=== PATIENT | female | born 1995 | race Caucasian/White ===

== ENCOUNTER → 2016-12-30 | Outpatient (CLI) | payer BC ==
--- NOTE | 2016-12-30 11:15 | Diagnostic Imaging Report ---
First Trimester OB ultrasound. INDICATION: Dating. FINDINGS: There is a normal-appearing single intrauterine . An embryo is seen with cardiac activity at 153 beats per minute. The crown-rump length is at 10 weeks and 5 days. ERNESTINE is 07/23/17. IMPRESSION: Live single intrauterine . Dictated by: Dictated on workstation # [id number]
== END ==
LOC: RAD 10:21
PROVIDERS: ATTEND Family Medicine
DX: Z36 Encounter for antenatal screening of mother (principal); Z3A.10 10 weeks gestation of pregnancy
CPT/HCPCS: 76801

== ENCOUNTER → 2017-03-06 | Outpatient (CLI) | payer BC, MEDICAID ==
--- NOTE | 2017-03-06 11:09 | Diagnostic Imaging Report ---
INDICATION: survey. TECHNIQUE: Multiple real-time grayscale images were obtained over the gravid uterus. COMPARISON: None. FINDINGS: There is a single living intrauterine in a breech presentation. There is a normal volume amniotic fluid. Placenta is anterior. There is no previa. The anatomical survey is unremarkable. Heart rate is 142 beats per minute and regular. There is a three-vessel cord. Biometrical measurements are as follows: Biparietal 4.7 cm, age 20 weeks 3 days. Head circumference 17.4 cm, age 20 weeks 0 days. Abdominal circumference 15.9 cm, age 21 weeks 1 days. Femur length 3.4 cm, age 20 weeks 4 days. Sonographic estimate age: 20 weeks 4 days. Sonographic estimated date of delivery: 07/20/17. Estimated Weight: 370 gm (+/- 54 gm). LMP percentile: 76%. heart rate: 142 beats per minute. number: 1 of 1. IMPRESSION: Single living intrauterine with sonographically estimated gestational age of 20 weeks 4 days and estimated date of confinement of 07/20/2017. Dictated by: Dictated on workstation # [id number]
== END ==
LOC: RAD 10:09
PROVIDERS: ATTEND Family Medicine
DX: Z34.02 Encounter for supervision of normal first pregnancy, second trimester (principal); Z3A.20 20 weeks gestation of pregnancy
CPT/HCPCS: 76805

== ENCOUNTER 2017-05-17 11:55 | Emergency (ER) | payer BC, MEDICAID ==
[~2017-05-17] VITALS: Ht 162.6 cm; Wt 73.0 kg
--- OUTSIDE RECORDS SUMMARY | 2017-05-17 12:00 | XMS REPORT | Continuity of Care Document ---
Author Author [facility] Organization [facility] Address Unknown Phone Unavailable Allergies Active Description Code Type Severity Reaction Onset Reported/Identified Relationship to Patient Clinical Status Yes No Known Drug Allergies [id number] Drug Allergy Unknown N/A 04/12/2015 Medications There is no data. Problems Date Dx Coded Attending Type Code Diagnosis Diagnosed By 04/12/2015 JOEL NIEVES, POLLO Belle Ot R10.11 RIGHT UPPER QUADRANT PAIN 12/31/2016 JEFFRY FRANCIS MD Ot Z36 ENCOUNTER FOR SCREENING OF MOT 12/31/2016 JEFFRY FRANCIS MD Ot Z3A.10 10 WEEKS GESTATION OF 01/07/2017 JEFFRY FRANCIS MD Ot Z36 ENCOUNTER FOR SCREENING OF MOT 01/07/2017 JEFFRY FRANCIS MD Ot Z3A.10 10 WEEKS GESTATION OF 03/04/2017 JEFFRY FRANCIS MD Ot Z36 ENCOUNTER FOR SCREENING OF MOT 03/04/2017 JEFFRY FRANCIS MD Ot Z3A.10 10 WEEKS GESTATION OF 03/04/2017 JEFFRY FRANCIS MD Ot Z36 ENCOUNTER FOR SCREENING OF MOT 03/04/2017 JEFFRY FRANCIS MD Ot Z3A.10 10 WEEKS GESTATION OF 03/13/2017 JEFFRY FRANCIS MD Ot Z34.02 ENCNTR FOR SUPRVSN OF NORMAL FIRST PREG, 03/13/2017 JEFFRY FRANCIS MD Ot Z3A.20 20 WEEKS GESTATION OF 03/16/2017 JEFFRY FRANCIS MD Ot Z36 ENCOUNTER FOR SCREENING OF MOT 03/16/2017 JEFFRY FRANCIS MD Ot Z3A.10 10 WEEKS GESTATION OF 03/16/2017 JEFFRY FRANCIS MD Ot Z34.02 ENCNTR FOR SUPRVSN OF NORMAL FIRST PREG, 03/16/2017 JEFFRY FRANCIS MD Ot Z3A.20 20 WEEKS GESTATION OF 04/14/2017 JEFFRY FRANCIS MD Ot Z34.02 ENCNTR FOR SUPRVSN OF NORMAL FIRST PREG, 04/14/2017 JEFFRY FRANCIS MD, Ot Z3A.20 20 WEEKS GESTATION OF Procedures There is no data. Results There is no data. Encounters ACCT No. Visit Date/Time Discharge Status Pt. Type Provider Facility Loc./Unit Complaint [id number] 03/06/2017 10:09:00 03/06/2017 23:59:59 CLS Outpatient JEFFRY FRANCIS MD [facility] RAD Z34.02 CARE [id number] 12/24/2016 07:56:00 12/24/2016 23:59:59 CLS Outpatient JEFFRY FRANCIS MD [facility] RAD Z34.00 [id number] 04/12/2015 20:36:00 04/12/2015 22:25:00 DIS Emergency POLLO MALDONADO MD [facility] ER R SIDE PAIN
--- OUTSIDE RECORDS SUMMARY | 2017-05-17 12:00 | XMS REPORT ---
Author Author NORA MILAN Organization [facility] Address [address] [place] [address] Care Team Providers Care Dental Coordinator Name Role Phone NORA MILAN Unavailable PROBLEMS Type Condition ICD9-CM Code [id number] Code Onset Dates Condition Status SNOMED Code Problem Genital warts A63.0 Active [id number] ALLERGIES Unknown Allergies SOCIAL HISTORY No smoking Hx information available PLAN OF CARE Activity Details Follow Up prn Reason: VITAL SIGNS Weight 172.2 lbs 2016-04-03 Temperature 97.5 degrees Fahrenheit 2016-04-03 Heart Rate 80 bpm 2016-04-03 Respiratory Rate 16 2016-04-03 Blood pressure systolic 110 mmHg 2016-04-03 Blood pressure diastolic 76 mmHg 2016-04-03 MEDICATIONS Medication Instructions Dosage Frequency Start Date End Date Duration Status Aldara 5 % Externally Three times a Week 1 application to affected area at bedtime Mar, Nov, 112 days Active Aldara 5 % Externally Three times a Week 1 application to affected area at bedtime Mar, Jul, 112 days Active RESULTS Name Result Date Reference Range PAP TEST, HPV IF ASCUS 2016-04-03 DIAGNOSIS: Specimen adequacy: Clinician provided ICD10: Performed by: . . Note: . CULTURE, GENITAL 2016-04-03 Genital Culture, Routine Final report Result 1 TRICHOMONAS (IN HOUSE) 2016-04-03 TRICHOMONAS Negative Control + Lot # [id number] Exp date 10/2016 PDF Report 2016-04-03 PDF Report1 LCLS BACTERIAL VAGINOSIS (IN HOUSE) 2016-04-03 RESULTS Negative Control + Lot # [id number] Exp date 12/2016 GC/CHLAM URINE (STATE) 2016-04-03 CHLAMYDIA GC PROCEDURES Procedure Date Ordered Related Diagnosis Body Site No Charge Apr 03, 2016 RODRIGUES VAG, DNA, DIR PROBE Apr 03, 2016 Office Visit, Est Pt., Level 3 Apr 03, 2016 TRICHOMONAS ASSAY W/OPTIC Apr 03, 2016 CULTURE, BACTERIA, OTHER Apr 03, 2016 SPECIMEN HANDLING Apr 03, 2016 IMMUNIZATIONS No Known Immunizations
[2017-05-17] MEDS ORDERED: NS IV 1000 ML 1,000 ML IV ONE ×2 (13:07→13:58)
--- NOTE | 2017-05-17 13:14 | ED GU-Female ---
General Chief Complaint: Cough/Cold/Flu Symptoms Stated Complaint: 30 WKS PREG/VOMITING/FEVER Nursing Triage Note: Pt presents to ED with c/o vomiting once today and fever/vomiting x 2 yesterday. Afebrile. 30 weeks . Nursing Sepsis Screen: Possible Sepsis Risk Source: patient Exam Limitations: no limitations History of Present Illness Date Seen by Provider: May 17, 2017 Time Seen by Provider: 13:14 Initial Comments 22-year-old female patient presents to the emergency Department with reports of vomiting once today and twice yesterday. Patient does complain of a fever yesterday, but denies any fever today. Patient states she is 30 weeks . Denies urinary symptoms, diarrhea, abdominal pain, vaginal bleeding, or vaginal discharge. Timing/Duration: yesterday, intermittent Severity/Quality: mild Prior Genitourinary Problems: none Modifying Factors: Worsens With Eating Allergies and Home Medications Allergies Coded Allergies: No Known Drug Allergies (Unverified , 04/12/15) Home Medications Cefdinir 300 Mg Capsule, 300 MG PO BID, #14 Ref 0 Prescribed by: ROCCO RESENDEZ on 05/17/17 1431 Ondansetron 4 Mg Tab.rapdis, 4 MG PO Q6H PRN for NAUSEA/VOMITING-1ST LINE, #10 Ref 0 Prescribed by: ROCCO RESENDEZ on 05/17/17 1431 Constitutional: see HPI, chills, No fever (denies fever today) EENTM: no symptoms reported Respiratory: No cough, No dyspnea on exertion, No phlegm, No short of breath Cardiovascular: No chest pain, No edema, No palpitations, No syncope Gastrointestinal: see HPI, No abdominal pain, No constipation, No diarrhea, loss of appetite, nausea, vomiting Genitourinary: denies burning, denies discharge, denies dysuria, denies frequency, denies flank pain, denies hematuria, denies pain : Yes Musculoskeletal: no symptoms reported Skin: no symptoms reported Psychiatric/Neurological: No Symptoms Reported All Other Systemes Reviewed Negative Unless Noted: Yes (Negative excepted noted.) Past Otcdvud-Ldlrwc-Eqxuxa Hx Patient Social History Alcohol Use: Denies Use Recreational Drug Use: No Smoking Status: Never a Smoker 2nd Hand Smoke Exposure: No Recent Foreign Travel: No Contact w/Someone Who Travel: No Recent Infectious Disease Expo: No Recent Hopitalizations: No Physical Abuse: No Sexual Abuse: No Mistreated: No Fear: No Immunizations Up To Date Tetanus Booster (TDap): Unknown Date of Influenza Vaccine: Feb 11, 2017 Seasonal Allergies Seasonal Allergies: No Surgeries History of Surgeries: Yes (DENTAL) Surgeries: Adenoidectomy, Gallbladder, Tonsillectomy Respiratory History of Respiratory Disorde: No Cardiovascular History of Cardiac Disorders: No Neurological History of Neurological Disord: No Reproductive System : Yes Hx : 1 Hx Para: 0 Hx Total # of Abortions (Spona: 0 Hx Reproductive Disorders: No Female Reproductive Disorders: Denies Genitourinary History of Genitourinary Disor: No Gastrointestinal History of Gastrointestinal Di: No Musculoskeletal History of Musculoskeletal Dis: No Endocrine History of Endocrine Disorders: No HEENT History of HEENT Disorders: No Cancer History of Cancer: No Psychosocial History of Psychiatric Problem: No Suicide Risk Score: 1 Integumentary History of Skin or Integumenta: No Blood Transfusions History of Blood Disorders: No Reviewed Nursing Assessment Reviewed/Agree w Nursing PMH: Yes Family Medical History Significant Family History: No Pertinent Family Hx Physical Exam Vital Signs Vital Sign - Last 12Hours 05/17/17 12:04 Temp 97.3 Pulse 95 Resp 18 B/P (MAP) 108/83 (91) Pulse Ox 99 O2 Delivery Room Air Capillary Refill : Less Than 3 Seconds General Appearance: WD/WN, no apparent distress HEENT: PERRL/EOMI, pharynx normal Neck: supple, normal inspection Cardiovascular: normal peripheral pulses, regular rate, rhythm, no edema, no murmur Respiratory: lungs clear, normal breath sounds, no respiratory distress, no accessory muscle use Gastrointestinal: normal bowel sounds, non tender, soft, No distended, other (( +) uteromegaly) Back: normal inspection, no CVA tenderness Extremities: no pedal edema, no calf tenderness, normal capillary refill Neurologic/Psychiatric: alert, normal mood/affect, oriented x 3 Skin: normal color, warm/dry Progress/Results/Core Measures Suspected Sepsis Recent Fever Within 48 Hours: Yes Infection Criteria Present: Suspected New Infection New/Unexplained Altered Menta: No Sepsis Screen: Possible Sepsis Risk Sepsis Diagnosis: SIRS Temperature:97.3 Pulse: 95 Respiratory Rate: 18 Laboratory Tests 05/17/17 13:20: White Blood Count 7.8 Blood Pressure 108 /83 Mean: 91 Laboratory Tests 05/17/17 13:20: Creatinine 0.61, Platelet Count 187, Total Bilirubin 0.6 Results/Orders Lab Results Laboratory Tests Test 05/17/17 13:20 Range/Units White Blood Count 7.8 4.3-11.0 10^3/uL Red Blood Count 4.19 L 4.35-5.85 10^6/uL Hemoglobin 13.0 11.5-16.0 G/DL Hematocrit 37 35-52 % Mean Corpuscular Volume 88 80-99 FL Mean Corpuscular Hemoglobin 31 25-34 PG Mean Corpuscular Hemoglobin Concent 35 32-36 G/DL Red Cell Distribution Width 13.3 10.0-14.5 % Platelet Count 187 130-400 10^3/uL Mean Platelet Volume 11.1 H 7.4-10.4 FL Neutrophils (%) (Auto) 82 H 42-75 % Lymphocytes (%) (Auto) 12 12-44 % Monocytes (%) (Auto) 6 0-12 % Eosinophils (%) (Auto) 0 0-10 % Basophils (%) (Auto) 0 0-10 % Neutrophils # (Auto) 6.4 1.8-7.8 X 10^3 Lymphocytes # (Auto) 1.0 1.0-4.0 X 10^3 Monocytes # (Auto) 0.5 0.0-1.0 X 10^3 Eosinophils # (Auto) 0.0 0.0-0.3 10^3/uL Basophils # (Auto) 0.0 0.0-0.1 10^3/uL Urine Color [place] H Urine Clarity SLIGHTLY CLOUDY Urine pH 6 5-9 Urine Specific [place] 1.015 L 1.016-1.022 Urine Protein 1+ H NEGATIVE Urine Glucose (UA) NEGATIVE NEGATIVE Urine Ketones 4+ H NEGATIVE Urine Nitrite NEGATIVE NEGATIVE Urine Bilirubin 1+ H NEGATIVE Urine Urobilinogen 1 NORMAL MG/DL Urine Leukocyte Esterase 3+ H NEGATIVE Urine RBC (Auto) NEGATIVE NEGATIVE Urine RBC NONE /HPF Urine WBC 5-10 H /HPF Urine Squamous Epithelial Cells >50 H /HPF Urine Crystals NONE /LPF Urine Bacteria MODERATE H /HPF Urine Casts NONE /LPF Urine Mucus NEGATIVE /LPF Urine Culture Indicated NO Sodium Level 136 135-145 MMOL/L Potassium Level 4.0 3.6-5.0 MMOL/L Chloride Level 104 98-107 MMOL/L Carbon Dioxide Level 19 L 21-32 MMOL/L Anion Gap 13 5-14 MMOL/L Blood Urea Nitrogen 9 7-18 MG/DL Creatinine 0.61 0.60-1.30 MG/DL Estimat Glomerular Filtration Rate > 60 BUN/Creatinine Ratio 15 Glucose Level 78 70-105 MG/DL Calcium Level 9.5 8.5-10.1 MG/DL Total Bilirubin 0.6 0.1-1.0 MG/DL Aspartate Amino Transf (AST/SGOT) 21 5-34 U/L Alanine Aminotransferase (ALT/SGPT) 13 0-55 U/L Alkaline Phosphatase 70 40-136 U/L Total Protein 7.6 6.4-8.2 GM/DL Albumin 3.7 3.2-4.5 GM/DL Lipase 33 8-78 U/L Micro Results Microbiology 05/17/17 Influenza Types A,B Antigen (ZAIN) - Final, Complete My Orders Orders - ROCCO RESENDEZ Cbc With Automated Diff (05/17/17 13:07) Comprehensive Metabolic Panel (05/17/17 13:07) Lipase (05/17/17 13:07) Ua Culture If Indicated (05/17/17 13:07) Influenza A And B Antigens (05/17/17 13:07) Saline Lock/Iv-Start (05/17/17 13:07) Heart Tones (05/17/17 13:07) Ns Iv 1000 Ml (Sodium Chloride 0.9%) (05/17/17 13:07) Ondansetron Injection (Zofran Injectio (05/17/17 13:15) Ns Iv 1000 Ml (Sodium Chloride 0.9%) (05/17/17 13:58) Ceftriaxone Injection (Rocephin Injectio (05/17/17 14:00) Ceftriaxone Injection (Rocephin Injectio (05/17/17 13:57) Ns (Ivpb) (Sodium Chloride 0.9% Ivpb Bag (05/17/17 13:58) Medications Given in ED Current Medications Medications Dose Ordered Sig/Rebeca Route Start Time Stop Time Status Last Admin Dose Admin Ceftriaxone Sodium 1000 mg/ Sodium Chloride 50 ml @ 100 mls/hr ONCE ONCE IV 05/17/17 14:00 05/17/17 14:29 DC 05/17/17 14:01 100 MLS/HR Ondansetron HCl 4 mg ONCE ONCE IVP 05/17/17 13:15 05/17/17 13:16 DC 05/17/17 13:22 4 MG Sodium Chloride 1,000 ml @ 0 mls/hr Q0M ONCE IV 05/17/17 13:07 05/17/17 13:08 DC 05/17/17 13:22 0 MLS/HR Sodium Chloride 1,000 ml @ 0 mls/hr Q0M ONCE IV 05/17/17 13:58 05/17/17 13:59 DC 05/17/17 14:01 0 MLS/HR Vital Signs/I&O Vital Sign - Last 12Hours 05/17/17 05/17/17 12:04 14:39 Temp 97.3 Pulse 95 92 Resp 18 18 B/P (MAP) 108/83 (91) Pulse Ox 99 98 O2 Delivery Room Air Room Air Capillary Refill : Less Than 3 Seconds Blood Pressure Mean: 91 Departure Communication (Admissions) Progress Notes Laboratory findings discussed with the patient. Patient reports feeling better with Zofran and 2 L of normal saline. Patient was given 1 g of Rocephin in the emergency department. Plan for discharge to home with follow-up as an outpatient with Dr. Roque. Patient was given a prescription for Omnicef. Patient to return immediately to the emergency department for worsened symptoms , vaginal bleeding, vaginal discharge, or any other concerns. Impression Impression: Primary Impression: Urinary tract infection Qualified Codes: N30.00 - Acute cystitis without hematuria Additional Impressions: Volume depletion 30 weeks gestation of Disposition: HOME, SELF-CARE Condition: Improved Departure-Patient Inst. Decision time for Depature: 14:29 Referrals: JEFFRY ROQUE MD (PCP/Family) Primary Care Physician Patient Instructions: Dehydration, Adult (DC), Urinary Tract Infection, Adult ( DC) Add. Discharge Instructions: All discharge instructions reviewed with patient and/or family. Voiced understanding. Medications as instructed. Tylenol [id number] as directed for pain if needed. Push fluids. Follow-up with Dr. Roque early this week for recheck, call for appointment time tomorrow morning. Return in the emergency department for worsened symptoms or any other concerns. Scripts Cefdinir (Cefdinir) 300 Mg Capsule 300 MG PO BID, #14 CAP 0 Refills Prov: ROCCO RESENDEZ 05/17/17 Ondansetron (Ondansetron Odt) 4 Mg Tab.rapdis 4 MG PO Q6H Y for NAUSEA/VOMITING-1ST LINE, #10 TAB 0 Refills Prov: ROCCO RESENDEZ 05/17/17 ROCCO RESENDEZ May 17, 2017 13:14
[2017-05-17] MEDS ORDERED: ONDANSETRON 4 MG/2 ML (SDV) Z0FRAN IVP ONE (13:15)
[2017-05-17 13:38] LABS: BASOPHILS % (AUTO) 0 % (0-10); CLARITY,URINE SLIGHTLY CLOUDY; COLOR,URINE AMBER; EOSINOPHILS % (AUTO) 0 % (0-10); GLUCOSE, URINE (UA) NEGATIVE (NEGATIVE); HEMATOCRIT 37 % (35-52); KETONES,URINE 4+ (NEGATIVE); LEUKOCYTE ESTERASE ,URINE 3+ (NEGATIVE); LYMPHOCYTES % (AUTO) 12 % (12-44); MEAN CORPUSCULAR HEMOGLOBIN 31 PG (25-34); MEAN CORPUSCULAR HGB CONC 35 G/DL (32-36); MEAN CORPUSCULAR VOLUME 88 FL (80-99); MEAN PLATELET VOLUME 11.1 FL (7.4-10.4); MONOCYTES # (AUTO) 0.5 X 10^3 (0.0-1.0); MONOCYTES % (AUTO) 6 % (0-12); NEUTROPHILS # (AUTO) 6.4 X 10^3 (1.8-7.8); NEUTROPHILS % (AUTO) 82 % (42-75); NITRITE,URINE NEGATIVE (NEGATIVE); PH,URINE 6 (5-9); PLATELET COUNT 187 10^3/uL (130-400); PROTEIN,URINE 1+ (NEGATIVE); RED BLOOD COUNT 4.19 10^6/uL (4.35-5.85); RED CELL DISTRIBUTION WIDTH 13.3 % (10.0-14.5); UROBILINOGEN,URINE 1 MG/DL (NORMAL); WHITE BLOOD COUNT 7.8 10^3/uL (4.3-11.0)
[2017-05-17 13:51] LABS: BACTERIA,URINE MODERATE /HPF; BILIRUBIN,URINE 1+ (NEGATIVE); SQUAMOUS EPITHELIAL CELL,UR >50 /HPF
[2017-05-17 13:55] LABS: ALANINE AMINOTRANSFERASE 13 U/L (0-55); ALBUMIN 3.7 GM/DL (3.2-4.5); ALKALINE PHOSPHATASE 70 U/L (40-136); BILIRUBIN,TOTAL 0.6 MG/DL (0.1-1.0); BUN/CREATININE RATIO 15; CALCIUM 9.5 MG/DL (8.5-10.1); CARBON DIOXIDE 19 MMOL/L (21-32); CHLORIDE 104 MMOL/L (98-107); CREATININE SERUM 0.61 MG/DL (0.60-1.30); GFR ESTIMATED > 60; GLUCOSE 78 MG/DL (70-105); LIPASE 33 U/L (8-78); SODIUM 136 MMOL/L (135-145); TOTAL PROTEIN 7.6 GM/DL (6.4-8.2)
[2017-05-17] MEDS ORDERED: cefTRIAXone 1 GM (ROCEPHIN) VIAL ONE (13:57)
[2017-05-17] MEDS ORDERED: NS (IVPB) 50 ML ONE (13:58)
[2017-05-17] MEDS ORDERED: cefTRIAXone INJECTION 1,000 MG in NS (IVPB) 50 ML IV ONE (14:00)
[2017-05-17] MEDS ORDERED: CEFD300C3 PO (14:31)
[2017-05-17] MEDS ORDERED: ONDA4TAB11 PO (14:31)
[2017-05-17 14:39] VITALS: BP 95/59
== END 2017-05-17 14:55 | disposition home or self-care (01) ==
LOC: EDUNIT# 11:55 → ER 11:56
DX: O23.43 Unspecified infection of urinary tract in pregnancy, third trimester (principal); O99.283 Endocrine, nutritional and metabolic diseases complicating pregnancy, third trimester; E86.9 Volume depletion, unspecified; Z3A.30 30 weeks gestation of pregnancy; Z90.89 Acquired absence of other organs
CPT/HCPCS: 36415; 80053; 81000; 83690; 85025; 87804; 96361; 96374; 96375